=== PATIENT | female | born 1950 | race Asian ===

== ENCOUNTER → 2017-01-15 | Day surgery (SDC) | payer MEDICARE, OTHER ==
[~2017-01-15] VITALS: Ht 151.8 cm; Wt 58.1 kg
[~2017-01-15] MED LIST: 0.9% Sodium Chloride 1,000 ML IV ONE; 0.9% Sodium Chloride 1,000 ML IV SCH; ALBU18HF INH; ASPI-973 PO; ATRV10T PO; CALC650T4 PO; CHOL200012 PO; CITA10TA9 PO; CLOP75TA28 PO; COD LIVER; IBUP200C11 PO; LORA10CA9 PO; PSYL1000 MC; Sodium Chloride LOK Flush 10 mL Syringe IV PRN; [UNRECOGNIZED DRUG - OTHER]; [UNRECOGNIZED DRUG - OTHER]; fentaNYL-PF 50 mCg/mL 2 mL Inj IVPUSH PRN
[2017-01-15 09:06] VITALS: BP 116/63; PULSE 51; RESP 12; O2SAT 100
[2017-01-15 10:04] VITALS: BP 95/41; PULSE 61; RESP 16; O2SAT 94
[2017-01-15 10:14] VITALS: BP 92/49; PULSE 51; RESP 16; O2SAT 100
[2017-01-15 10:24] VITALS: BP 98/60; PULSE 57; RESP 16; O2SAT 100
--- NOTE | 2017-01-15 10:44 | ENDO ---
[address] [address] ENDOSCOPY PROCEDURE PATIENT: CLINTON REILLY : 1950 MR#: [id number] ADMIT: 01/15/2017 JOB ID: [id number] DATE: 01/15/2017 PRIMARY PROVIDER: Umm Kearns MD PROCEDURE: Colonoscopy. INDICATIONS: A 66-year-old female who reports for colon cancer screening. She denies any GI symptoms, rectal bleeding, constipation or diarrhea. EQUIPMENT: [employer]-H190-L. SEDATION: 3 mg Versed and 75 mcg fentanyl. COMPLICATIONS: None identified. BOWEL PREPARATION: Excellent. PROCEDURE INFORMATION: After the risks and benefits were explained, written and verbal informed consent was obtained. The patient was brought into the endoscopy suite and placed into the left lateral decubitus position. Sedation was achieved as above. A digital rectal examination was accomplished. Mild internal hemorrhoids appreciated. The scope was introduced into the rectum and advanced to the cecum as identified by the appendiceal orifice and ileocecal valve. The terminal ileum was briefly accessed. The scope was then slowly withdrawn to carefully examine the mucosa for any defects or lesions. Multiple direct views were made through the dentate line for exclusion of pathology. The colon was decompressed, the scope removed from the patient who tolerated the procedure well. FINDINGS: No significant polyps, mass lesions, or inflammatory features identified throughout. The patient had scattered subepithelial erythema consistent with mild subepithelial hemorrhage. I did not appreciate any obvious chronic inflammation anywhere in the rectum. These scattered erythematous foci were seen in the rectum and in the distal sigmoid, but did not appear consistent with a chronic inflammatory process. I suspect this may be an element of some prep artifact, especially in that the patient reports a history of a tendency towards some constipation more than anything else. ENDOSCOPIC DIAGNOSES: 1. Mild internal hemorrhoids. 2. Otherwise visually unremarkable colonoscopy to cecum. RECOMMENDATIONS: Repeat colon cancer screening with colonoscopy 10 years' time, sooner should symptoms warrant an earlier exam.
== END | disposition home or self-care (01) ==
LOC: END 02:14
PROVIDERS: ATTEND Internal Medicine Gastroenterology
DX: Z12.11 Encounter for screening for malignant neoplasm of colon (principal); K64.8 Other hemorrhoids; Z95.5 Presence of coronary angioplasty implant and graft
CPT/HCPCS: 99153; G0121; G0500; J2250; J3010; J7030